=== PATIENT | female | born 1985 | race Caucasian/White ===

== ENCOUNTER 2022-07-22 05:58 | Day surgery (SDC) | payer OTHER ==
[2022-07-21 08:56] VITALS: BMI 24.3
[2022-07-21 09:20] LABS: BHCG - Serum Negative (NEGATIVE); Pregs Control Background? CLEAR/WHITE (CLR/WHITE); Pregs Control Bar Appear? YES (CONTROL BAR)
[2022-07-21 09:34] LABS: Hemoglobin 9.2 g/dL (12.0-15.5); Mean Corpuscular HGB CONC 32.4 g/dL (32.0-36.0); Mean Corpuscular Hemoglobin 26.9 pg (27.0-33.0); Platelet Count 317 10x3/uL (150-450); RBC Distribution Width 12.6 % (11.5-14.5); Red Blood Cell (RBC) Count 3.42 10x6/uL (3.90-5.03); White Blood Cell (WBC) Count 5.1 10x3/uL (3.5-10.5)
[2022-07-22] MEDS ORDERED: Bupivacaine HCl 0.5%/Epinephrine 1:200,000/PF 30 ml Vial ONE (06:28)
[2022-07-22] MEDS ORDERED: Gabapentin 300 MG CAP ONE (06:32)
[2022-07-22] MEDS ORDERED: CeleCOXIB 100 MG CAP ONE (06:33)
[2022-07-22] MEDS ORDERED: Famotidine/PF 20 mg/2ml Vial ONE (06:34)
[2022-07-22] MEDS ORDERED: Dexamethasone 4 mg/ml Vial ONE (06:44)
[2022-07-22] MEDS ORDERED: Rocuronium Bromide 10 MG/ML (10ML VIAL) ONE (06:44)
[2022-07-22] MEDS ORDERED: PROPOFOL 20 ML ONE (06:44)
[2022-07-22] MEDS ORDERED: Ondansetron PF 4 MG/2 ML Vial ONE (06:44)
[2022-07-22] MEDS ORDERED: Lidocaine 1% PF 5 ML VIAL ONE (06:44)
[2022-07-22] MEDS ORDERED: Midazolam HCl 2 mg/2 ml Vial ONE (06:44)
[2022-07-22] MEDS ORDERED: Fentanyl 250 MCG/5 ML VIAL ONE (06:44)
[2022-07-22] MEDS ORDERED: Glycopyrrolate 0.2 MG/ML 5 ML SYRINGE ONE (06:45)
[2022-07-22] MEDS ORDERED: Ketorolac Tromethamine 30 MG/ML VIAL ONE (06:45)
[2022-07-22] MEDS ORDERED: CEFAZOLIN 2 GM VIAL ONE (07:24)
[2022-07-22] MEDS ORDERED: PHENYLEPHRINE-NS 100 MCG/ML 10 ML SYRINGE ONE (07:48)
[2022-07-22] MEDS ORDERED: Fentanyl 100 MCG/2 ML VIAL ONE (09:28)
[2022-07-22] MEDS ORDERED: HYDROcodone/Acetaminophen 5/325 mg Tablet ONE (11:05)
== END 2022-07-22 12:10 | disposition home or self-care (01) ==
LOC: CSHSDC 05:58
PROVIDERS: ATTEND Obstetrics & Gynecology
DX: D25.0 Submucous leiomyoma of uterus (principal); N85.00 Endometrial hyperplasia, unspecified; D64.9 Anemia, unspecified; Z73.6 Limitation of activities due to disability; Z87.59 Personal history of other complications of pregnancy, childbirth and the puerperium; M62.08 Separation of muscle (nontraumatic), other site
CPT/HCPCS: 74018; 84703; 85027; 86850; 86900; 86901; 88307; J1100; J1885; J2250; J2405; J2704; J3010; S0028